=== PATIENT | male | born 1955 | race Caucasian/White ===

== ENCOUNTER → 2017-03-31 | Outpatient (CLI) | payer MEDICARE ==
[2017-03-31 08:57] LABS: BUN/CREATININE RATIO 16 (0-10)
== END ==
LOC: LAB 07:30 → RAD 07:30
PROVIDERS: Emergency Medicine
DX: M13.812 Other specified arthritis, left shoulder (principal); M51.36 Other intervertebral disc degeneration, lumbar region; S33.6XXA Sprain of sacroiliac joint, initial encounter; E03.8 Other specified hypothyroidism; E11.65 Type 2 diabetes mellitus with hyperglycemia; E11.69 Type 2 diabetes mellitus with other specified complication; E78.2 Mixed hyperlipidemia; G47.09 Other insomnia; G47.33 Obstructive sleep apnea (adult) (pediatric); G89.4 Chronic pain syndrome; G93.41 Metabolic encephalopathy; G93.49 Other encephalopathy; I10 Essential (primary) hypertension; I25.10 Atherosclerotic heart disease of native coronary artery without angina pectoris; J44.9 Chronic obstructive pulmonary disease, unspecified; K31.84 Gastroparesis; M13.871 Other specified arthritis, right ankle and foot; M15.8 Other polyosteoarthritis; M1A.9XX0 Chronic gout, unspecified, without tophus (tophi); M62.81 Muscle weakness (generalized); R06.02 Shortness of breath; R07.89 Other chest pain; R35.0 Frequency of micturition; R37 Sexual dysfunction, unspecified; R53.83 Other fatigue
CPT/HCPCS: 36415; 73030; 80053; 80061; 83036; 83704

== ENCOUNTER → 2021-08-27 | Outpatient (CLI) | payer MEDICARE ==
[~2021-08-27] MED LIST: ASPIRIN 325MG325 MG PO; ATORVASTATIN CA40 MG PO; COLESTIPOL HCL1 GM PO; CYMBALTA60 MG PO; ELAVIL 50 MG TA50 MG PO; FENOFIBRATE160 MG PO; FINASTERIDE5 MG PO; FLOMAX0.4 MG PO; FUROSEMIDE40 MG PO; IBUPROFEN800 MG PO; KEFLEX CAP 500500 MG PO; LISINOPRIL2.5 MG PO; LOPRESSOR50 MG PO; MIRTAZAPINE15 MG PO; MYCOSTATIN100000 UTS PO; NORCO 7.5-3251 EACH PO; NOVOLIN 70100 UNITS/ SC; NOVOLIN SQ; OXYBUTYNIN CHLO10 MG PO; REMERON15 MG PO; SYNTHROID125 MCG PO; VITAMIN C500 M1 PO; VITAMIN D10000 UNIT PO; [UNRECOGNIZED DRUG - OTHER] PO
[2021-08-28 06:41] LABS: CREATININE, URINE 60.8 mg/dL (Not Estab.); MICROALB/CREAT RATIO <5 (0-29)
== END ==
LOC: LAB 09:31
PROVIDERS: Emergency Medicine
DX: R06.00 Dyspnea, unspecified (principal); R60.0 Localized edema; I25.10 Atherosclerotic heart disease of native coronary artery without angina pectoris; I10 Essential (primary) hypertension; E78.2 Mixed hyperlipidemia; E11.9 Type 2 diabetes mellitus without complications
CPT/HCPCS: 36415; 36600; 71046; 82043; 82570; 82803; 83880

== ENCOUNTER 2022-02-18 16:11 | Emergency (ER) | payer OTHER | END 2022-02-18 17:30 | disposition home or self-care (01) | LOC: ER1 16:11 | DX: S51.012A Laceration without foreign body of left elbow, initial encounter (principal); W29.8XXA Contact with other powered hand tools and household machinery, initial encounter | CPT/HCPCS: 90471; 90715; 99282 ==

== ENCOUNTER → 2022-06-06 | Outpatient (CLI) | payer OTHER | LOC: KOH-I 15:00 | DX: M50.11 Cervical disc disorder with radiculopathy, high cervical region (principal); M48.02 Spinal stenosis, cervical region | CPT/HCPCS: 72125 ==